=== PATIENT | female | born 1945 | race Caucasian/White ===

== ENCOUNTER → 2016-12-19 | Outpatient (CLI) | payer MEDICARE, OTHER ==
[~2016-12-19] MED LIST: ACCUPRIL40 MG PO; ASPIRIN81 MG PO; BRILINTA90 MG PO; CEFDINIR300 MG PO; CELEBREX 200MG200 MG PO; CORDARONE 200M200 MG PO; LEVAQUIN500 MG PO; LIPITOR TAB 1010 MG PO; LOPRESSOR 25 MG25 MG PO; NIFEDIPINE ER30 M1 PO; NITROSTAT0.4 MG SC; PROCARDIA XL60 MG PO; SYNTHROID88 MCG PO; TRAMADOL HCL50 MG PO; TYLENOL 325MG325 MG PO; TYLENOL WITH C1 EACH PO; VIT B12 PO; VIT D PO; VITAMIN D50000 UNIT PO
[2016-12-19 13:01] LABS: RED BLOOD COUNT 3.84 M/UL (4.00-5.10); WHITE BLOOD COUNT 6.1 K/UL (4.5-11.0)
[2016-12-19 13:27] LABS: BUN/CREATININE RATIO 20 (0-10)
== END ==
LOC: LAB 12:13
PROVIDERS: Internal Medicine Cardiovascular Disease
DX: I47.1 Supraventricular tachycardia (principal); I47.2 Ventricular tachycardia; R00.2 Palpitations; I10 Essential (primary) hypertension
CPT/HCPCS: 36415; 71020; 80048; 85025

== ENCOUNTER 2016-12-20 09:27 | Outpatient (CLI) | payer MEDICARE, OTHER ==
[~2016-12-20] VITALS: Ht 170.2 cm; Wt 67.1 kg
[~2016-12-20 09:27] MED LIST changes: -CORDARONE 200M200 MG PO; -LEVAQUIN500 MG PO; -NIFEDIPINE ER30 M1 PO; -TYLENOL 325MG325 MG PO; -TYLENOL WITH C1 EACH PO; -VIT B12 PO; -VIT D PO
[2016-12-20] MEDS ORDERED: NIFEDIPINE ER30 M1 PO (10:57)
[2016-12-20] MEDS ORDERED: TYLENOL 325MG325 MG PO (10:58)
[2016-12-20] MEDS ORDERED: VIT D PO (10:59)
[2016-12-20] MEDS ORDERED: VIT B12 PO (10:59)
[2016-12-21] MEDS ORDERED: CORDARONE 200M200 MG PO (10:27)
[2016-12-21] MEDS ORDERED: LEVAQUIN500 MG PO (10:28)
[2016-12-21] MEDS ORDERED: TYLENOL WITH C1 EACH PO (10:30)
== END 2016-12-21 13:00 | disposition home or self-care (01) ==
LOC: CATH 09:27 → PROG CARE 16:58 → CATH 12-21 13:00
DX: I11.0 Hypertensive heart disease with heart failure (principal); I50.22 Chronic systolic (congestive) heart failure; I25.5 Ischemic cardiomyopathy; I49.01 Ventricular fibrillation; I47.1 Supraventricular tachycardia; I47.2 Ventricular tachycardia; I25.2 Old myocardial infarction; I44.7 Left bundle-branch block, unspecified; I25.10 Atherosclerotic heart disease of native coronary artery without angina pectoris; E78.5 Hyperlipidemia, unspecified; I48.92 Unspecified atrial flutter; Z79.82 Long term (current) use of aspirin; Z79.899 Other long term (current) drug therapy; I48.91 Unspecified atrial fibrillation; Z95.5 Presence of coronary angioplasty implant and graft; M19.90 Unspecified osteoarthritis, unspecified site; Z68.23 Body mass index [BMI] 23.0-23.9, adult; E03.9 Hypothyroidism, unspecified; M54.16 Radiculopathy, lumbar region; M54.30 Sciatica, unspecified side; E53.8 Deficiency of other specified B group vitamins; E55.9 Vitamin D deficiency, unspecified; E78.00 Pure hypercholesterolemia, unspecified
CPT/HCPCS: 33225; 33249; 71010; 93005; 93620; 93621; 93641; C1730; C1766; C1777; C1882; C1898; C1900; J1200; J1644; J2250; J2550; J3010; J3370; J7040; J7050; J7070; Q9965

== ENCOUNTER → 2021-04-28 | Outpatient (CLI) | payer MEDICARE, OTHER ==
[~2021-04-28] MED LIST changes: +CORDARONE 200M200 MG PO; +ENTRESTO 24 MG1 EACH PO; +HYDROCHLOROTHIA25 MG PO; +LEVAQUIN500 MG PO; +NIFEDIPINE ER30 M1 PO; +PROTONIX40 MG PO; +SYNTHROID75 MCG PO; -SYNTHROID88 MCG PO; +TYLENOL 325MG325 MG PO; +TYLENOL WITH C1 EACH PO; +VITAMIN B-121000 MC3 PO; +VITAMIN D2000 UNI1 PO
== END ==
LOC: KOH-I 16:14
DX: J20.9 Acute bronchitis, unspecified (principal)
CPT/HCPCS: 71046

== ENCOUNTER → 2021-07-05 | Outpatient (CLI) | payer MEDICARE, OTHER | LOC: HEART 5 08:53 | DX: R06.02 Shortness of breath (principal); Z79.899 Other long term (current) drug therapy; R94.2 Abnormal results of pulmonary function studies | CPT/HCPCS: 94060; 94729 ==